=== PATIENT | female | born 2000 | race Hispanic/Latino ===

== ENCOUNTER 2022-07-21 17:38 | Emergency (ER) ==
[~2022-07-21] VITALS: Ht 157.5 cm; Wt 73.2 kg
[2022-07-21] MEDS ORDERED: DOXYCYCLINE HY100 MG PO (18:07)
[2022-07-21] MEDS ORDERED: IBUPROFEN200 MG PO (18:07)
== END 2022-07-21 18:55 | disposition home or self-care (01) ==
LOC: FSED 17:43
DX: L02.415 Cutaneous abscess of right lower limb (principal); L72.0 Epidermal cyst
CPT/HCPCS: 10060; 27301; 99283